=== PATIENT | male | born 1960 | race Caucasian/White ===

== ENCOUNTER 2024-02-21 15:51 | Inpatient (IN) | payer MEDICAID ==
[~2024-02-21] VITALS: Ht 162.6 cm; Wt 117.5 kg
[2024-02-21] MEDS: FUROSEMIDE 40 MG/4 ML VIAL IV ONE (16:00)
[2024-02-21 16:16] LABS: BASOPHILS % (AUTO) 0.3 % (0.0-2.0); EOSINOPHILS # (AUTO) 0.2 K/uL (0.0-0.7); EOSINOPHILS % (AUTO) 2.3 % (0.0-6.0); HEMATOCRIT 35 % (39-51); HEMOGLOBIN 11.2 g/dL (13.5-17.5); LYMPHOCYTES # (AUTO) 1.5 K/uL (0.8-4.8); LYMPHOCYTES % (AUTO) 20.6 % (20.0-44.0); MEAN CORPUSCULAR HEMOGLOBIN 28 PG (26.0-33.0); MEAN CORPUSCULAR HGB CONC 32 g/dl (31.0-36.0); MEAN CORPUSCULAR VOLUME 87 fL (80-96); MONOCYTES # (AUTO) 0.5 K/uL (0.1-1.30); MONOCYTES % (AUTO) 6.5 % (2.0-12.0); NEUTROPHILS # (AUTO) 5.1 K/uL (1.8-8.9); NEUTROPHILS % (AUTO) 70.3 % (43.0-81.0); PLATELET COUNT (AUTO) 263 K/uL (150-450); RED BLOOD CELL COUNT(AUTO) 3.97 MIL/uL (4.5-6.0); RED CELL DISTRIBUTION WIDTH 14.8 % (11.5-15.0); WHITE BLOOD COUNT (AUTO) 7.3 K/uL (4.3-11.0)
[2024-02-21] MEDS ORDERED: FUROSEMIDE 40 MG/4 ML VIAL ONE (16:17)
[2024-02-21 16:27] LABS: INR 1.02 (0.91-1.10); PARTIAL THROMBOPLASTIN TIME 32.3 SEC (24.3-34.3); PROTHROMBIN TIME 10.8 SECS (9.2-11.1)
[2024-02-21 16:28] LABS: CALCIUM, SERUM 8.2 mg/dL (8.5-10.1); CHLORIDE 110 mmol/L (98-107); GLUCOSE 141 mg/dL (74-106); SODIUM SERUM 140 mmol/L (136-145)
[2024-02-21] MEDS ORDERED: DAPA10TA PO (16:40)
[2024-02-21] MEDS ORDERED: GLIP5TAB13 PO (16:40)
[2024-02-21] MEDS ORDERED: LISI10TA29 PO (16:40)
[2024-02-21] MEDS ORDERED: METO-358 PO (16:40)
[2024-02-21] MEDS ORDERED: FURO-144 PO (16:40)
[2024-02-21] MEDS ORDERED: ASPI-1169 PO (16:40)
[2024-02-21] MEDS ORDERED: LINA5TAB PO (16:40)
[2024-02-21] MEDS ORDERED: HYDR100T27 PO (16:40)
[2024-02-21 16:42] LABS: ALANINE AMINOTRANSFERASE 13 U/L (12-78); ALBUMIN 3.5 g/dL (3.4-5.0); ALKALINE PHOSPHATASE 111 U/L (46-116); ASPARTATE AMINOTRANSFERASE 7 U/L (15-37); BILIRUBIN,DIRECT 0.1 mg/dL (0.0-0.2); BILIRUBIN,TOTAL 0.4 mg/dL (0.2-1.0); CREATININE 6.8 mg/dL (0.6-1.3); NT-PRO BNP 5751 pg/mL (0-125); TOTAL PROTEIN, SERUM 7.9 g/dL (6.4-8.2)
[2024-02-21 16:46] LABS: CARBON DIOXIDE 10 mmol/L (21-32)
[2024-02-21 16:47] LABS: UREA NITROGEN, BLOOD 146 mg/dL (7-18)
[2024-02-21] MEDS: SODIUM ZIRCONIUM CYCLOSILICATE 10 GM POWD.PACK PO ONE (17:00)
[2024-02-21] MEDS: INSULIN REGULAR, HUMAN 100 UNIT/ML 10 ML VIAL IV ONE (17:00)
[2024-02-21] MEDS: DEXTROSE 50%-WATER 50 ML DISP.SYRIN IV ONE (17:00)
[2024-02-21] MEDS: ALBUTEROL FS 2.5 MG/3 ML VIAL.NEB NEB ONE (17:03)
[2024-02-21 17:04] VITALS: O2SAT 96
[2024-02-21 17:18] VITALS: O2SAT 100
[2024-02-21 21:55] VITALS: O2SAT 96
[2024-02-21 22:10] VITALS: BP 156/55; TEMP 97.7; O2SAT 96
[2024-02-21] MEDS ORDERED: KETO5DRO83 OP (22:54)
[2024-02-21] MEDS ORDERED: DEXTROSE 50%-WATER 50 ML DISP.SYRIN IV PRN (23:00)
[2024-02-21] MEDS ORDERED: *INSULIN REGULAR(HUMULIN R)HUM 100 UNIT/ML VIAL SQ PRN (23:00)
[2024-02-21] MEDS ORDERED: SODIUM POLYSTYRENE SULFONATE 15 G/60 ML BOTTLE ONE ×2 (23:48→23:49)
[2024-02-21] MEDS: AMLODIPINE BESYLATE 5 MG TABLET PO SCH (23:54)
[2024-02-21] MEDS: SODIUM POLYSTYRENE SULFONATE 15 G/60 ML BOTTLE PO ONE (23:55)
[2024-02-22] VITALS: BP 160/60; TEMP 97.7; O2SAT 96
[2024-02-22 04:00] VITALS: BP 163/66; TEMP 97.8; O2SAT 98
[2024-02-22] MEDS: AMLODIPINE BESYLATE 5 MG TABLET PO ONE (04:07)
[2024-02-22] MEDS: INSULIN REGULAR, HUMAN 100 UNIT/ML 3 ML VIAL SQ PRN (06:32)
[2024-02-22] MEDS: BLOOD SUGAR DIAGNOSTIC 1 EACH STRIP VI SCH (06:32)
[2024-02-22 06:53] LABS: BASOPHILS % (AUTO) 0.3 % (0.0-2.0); EOSINOPHILS # (AUTO) 0.3 K/uL (0.0-0.7); EOSINOPHILS % (AUTO) 5.6 % (0.0-6.0); HEMATOCRIT 30 % (39-51); HEMOGLOBIN 9.3 g/dL (13.5-17.5); LYMPHOCYTES # (AUTO) 1.2 K/uL (0.8-4.8); MEAN CORPUSCULAR HEMOGLOBIN 28 PG (26.0-33.0); MEAN CORPUSCULAR HGB CONC 31 g/dl (31.0-36.0); MEAN CORPUSCULAR VOLUME 88 fL (80-96); MONOCYTES # (AUTO) 0.5 K/uL (0.1-1.30); MONOCYTES % (AUTO) 8.8 % (2.0-12.0); NEUTROPHILS # (AUTO) 4.1 K/uL (1.8-8.9); NEUTROPHILS % (AUTO) 66.3 % (43.0-81.0); PLATELET COUNT (AUTO) 205 K/uL (150-450); RED BLOOD CELL COUNT(AUTO) 3.37 MIL/uL (4.5-6.0); RED CELL DISTRIBUTION WIDTH 14.9 % (11.5-15.0); WHITE BLOOD COUNT (AUTO) 6.2 K/uL (4.3-11.0)
[2024-02-22 07:25] LABS: CALCIUM, SERUM 8.2 mg/dL (8.5-10.1); POTASSIUM 5.2 mmol/L (3.5-5.1)
[2024-02-22] MEDS: DAPAGLIFLOZIN PROPANEDIOL 5 MG TABLET PO SCH (08:10)
[2024-02-22] MEDS: ASPIRIN 81 MG TAB.CHEW PO SCH (08:10)
[2024-02-22] MEDS: METOPROLOL SUCCINATE 50 MG TAB.SR.24H PO SCH (08:11)
[2024-02-22] MEDS: hydrALAZINE HCL 50 MG TABLET PO SCH (08:12)
[2024-02-22] MEDS: LINAGLIPTIN 5 MG TABLET PO SCH (08:12)
[2024-02-22 08:30] VITALS: BP 164/54; TEMP 98.1; O2SAT 95
[2024-02-22 08:55] LABS: CREATININE 6.7 mg/dL (0.6-1.3)
[2024-02-22] MEDS: AMLODIPINE BESYLATE 5 MG TABLET PO SCH (09:53)
[2024-02-22] MEDS: FUROSEMIDE 40 MG/4 ML VIAL IV SCH (09:53)
[2024-02-22 09:59] LABS: THYROID STIMULATING HORMONE 1.56 uIU/mL (0.358-3.74)
[2024-02-22 16:00] VITALS: BP 167/57; TEMP 98.4; O2SAT 96
[2024-02-22] MEDS ORDERED: CLONIDINE HCL 0.1 MG TABLET PO PRN (17:30)
[2024-02-22] MEDS: NIFEdipine XL (30MG) 30 MG TAB PO SCH (17:52)
[2024-02-22 21:09] VITALS: BP 135/57; TEMP 98.1; O2SAT 96
[2024-02-22] MEDS: HEPARIN SODIUM, PORCINE 5000 UNITS/1 ML VIAL SQ SCH (22:22)
[2024-02-23 00:31] VITALS: BP 139/59; TEMP 97.7; O2SAT 96
[2024-02-23 04:06] VITALS: BP_SYST 128; TEMP 98.2; O2SAT 94
[2024-02-23 07:30] VITALS: BP 113/41; TEMP 98.4; O2SAT 95
[2024-02-23 07:57] LABS: CALCIUM, SERUM 7.4 mg/dL (8.5-10.1); CREATININE 6.3 mg/dL (0.6-1.3); POTASSIUM 5.4 mmol/L (3.5-5.1)
[2024-02-23] MEDS ORDERED: AMLODIPINE BESYLATE 5 MG TABLET PO SCH (09:00)
[2024-02-23 12:57] LABS: APPEARANCE,URINE SLIGHTLY CLOUDY (CLEAR); BILIRUBIN,URINE NEGATIVE (NEGATIVE); BLOOD, URINE NEGATIVE Ery/uL (NEGATIVE); COLOR,URINE YELLOW (YELLOW); KETONES,URINE NEGATIVE (NEGATIVE); LEUKOCYTE ESTERASE ,URINE NEGATIVE (NEGATIVE); NITRITE, URINE NEGATIVE (NEGATIVE); PH,URINE 5.5 (5.0-8.0); PROTEIN,URINE 1+ mg/dl (NEGATIVE); UGLUCOSE NEGATIVE (NEGATIVE); UROBILINOGEN,URINE 0.2 EU/dL (0.2)
[2024-02-23 13:07] LABS: CREATININE, URINE 119.7 MG/DL (30.0-125.0); URINE TOTAL PROTEIN 80.4 mg/dL (0-11.9)
[2024-02-23 13:29] LABS: ADD URINE CULTURE YES; BACTERIA,URINE Few /HPF (None Seen); MUCUS,URINE Few /LPF (None Seen); SQUAMOUS EPITHELIAL CELL,UR 0-2 /HPF (None Seen); URINE AMORPHOUS URATE Few /HPF (None Seen)
[2024-02-23 14:03] LABS: EOSINOPHIL,URINE None Seen
[2024-02-23] MEDS: CEFTRIAXONE 1 G in IV D5W 50 ML IV SCH (14:50)
[2024-02-23 16:03] LABS: BASOPHILS % (AUTO) 0.4 % (0.0-2.0); EOSINOPHILS # (AUTO) 0.4 K/uL (0.0-0.7); EOSINOPHILS % (AUTO) 7.3 % (0.0-6.0); HEMATOCRIT 29 % (39-51); HEMOGLOBIN 9.4 g/dL (13.5-17.5); LYMPHOCYTES # (AUTO) 1.1 K/uL (0.8-4.8); LYMPHOCYTES % (AUTO) 21.6 % (20.0-44.0); MEAN CORPUSCULAR HEMOGLOBIN 28 PG (26.0-33.0); MEAN CORPUSCULAR HGB CONC 33 g/dl (31.0-36.0); MEAN CORPUSCULAR VOLUME 87 fL (80-96); MONOCYTES # (AUTO) 0.5 K/uL (0.1-1.30); MONOCYTES % (AUTO) 9.4 % (2.0-12.0); NEUTROPHILS # (AUTO) 3.3 K/uL (1.8-8.9); NEUTROPHILS % (AUTO) 61.3 % (43.0-81.0); PLATELET COUNT (AUTO) 205 K/uL (150-450); RED BLOOD CELL COUNT(AUTO) 3.31 MIL/uL (4.5-6.0); RED CELL DISTRIBUTION WIDTH 14.8 % (11.5-15.0); WHITE BLOOD COUNT (AUTO) 5.3 K/uL (4.3-11.0)
[2024-02-23 16:30] VITALS: BP 152/63; TEMP 98.4; O2SAT 96
[2024-02-23 16:41] LABS: BILIRUBIN,TOTAL 0.2 mg/dL (0.2-1.0); CALCIUM, SERUM 7.3 mg/dL (8.5-10.1); CREATININE 6.3 mg/dL (0.6-1.3); MAGNESIUM 2.5 mg/dL (1.8-2.4); POTASSIUM 5.4 mmol/L (3.5-5.1)
[2024-02-23] MEDS: SODIUM ZIRCONIUM CYCLOSILICATE 5 GM POWD.PACK PO ONE (17:07)
[2024-02-23 17:36] LABS: PHOSPHORUS 9.7 mg/dL (2.5-4.9)
== END 2024-02-23 17:30 | disposition left against medical advice (07) | DRG 194 ==
LOC: ER 16:23 → TELE 21:20
PROVIDERS: ADMIT Internal Medicine; ATTEND Internal Medicine
DX: I13.0 Hypertensive heart and chronic kidney disease with heart failure and stage 1 through stage 4 chronic kidney disease, or unspecified chronic kidney disease (principal); N17.9 Acute kidney failure, unspecified; I50.31 Acute diastolic (congestive) heart failure; E11.22 Type 2 diabetes mellitus with diabetic chronic kidney disease; I50.9 Heart failure, unspecified; E87.5 Hyperkalemia; I25.10 Atherosclerotic heart disease of native coronary artery without angina pectoris; I50.20 Unspecified systolic (congestive) heart failure; E66.9 Obesity, unspecified; N18.4 Chronic kidney disease, stage 4 (severe); Z79.82 Long term (current) use of aspirin; Z79.84 Long term (current) use of oral hypoglycemic drugs; Z68.41 Body mass index [BMI] 40.0-44.9, adult; E11.21 Type 2 diabetes mellitus with diabetic nephropathy; Z91.199 Patient's noncompliance with other medical treatment and regimen due to unspecified reason; Z53.29 Procedure and treatment not carried out because of patient's decision for other reasons
CPT/HCPCS: 36415; 71045-TC; 76770-TC; 80048-TC; 80053-TC; 80076-TC; 81001; 82570-TC; 82962-TC; 83540-TC; 83735-TC; 83880; 84100-TC; 84132-TC; 84300-TC; 84443-TC; 84484-TC; 85025-TC; 85730-TC; 87086-TC; 93307-TC; 97110-TC; 97116-TC; 97530-TC; A4223; G0378; J0696; J1644; J1815; J1940; J7060